=== PATIENT | female | born 1945 | race Caucasian/White ===

== ENCOUNTER 2022-08-01 05:52 | Day surgery (SDC) | payer MEDICARE ==
[2022-07-29 13:06] LABS: BASOPHILS % (AUTO) 0.2 % (0.0-5.0); EOSINOPHILS % (AUTO) 3.5 % (0.0-8.0); HEMATOCRIT 38.2 % (36-48); LYMPHOCYTES % (AUTO) 25.4 % (21.0-51.0); MEAN CORPUSCULAR HEMOGLOBIN 31.6 pg (27.0-33.0); MEAN CORPUSCULAR HGB CONC 32.7 g/dL (32.0-36.0); MEAN CORPUSCULAR VOLUME 96.7 fL (79-99); MONOCYTES % (AUTO) 7.8 % (3.0-13.0); NEUTROPHILS % (AUTO) 62.9 % (40.0-77.0); PLATELET COUNT (AUTO) 200 K/uL (130-400); RED BLOOD CELL COUNT(AUTO) 3.95 MIL/uL (4.00-5.50); WHITE BLOOD COUNT (AUTO) 6.3 K/uL (4.8-10.8)
[2022-07-29 13:14] LABS: CREATININE 0.8 mg/dL (0.5-1.5); POTASSIUM 4.4 mmol/L (3.5-5.1)
[2022-07-29 13:34] LABS: INR 0.93 (0.85-1.15)
[2022-07-29 13:35] LABS: PARTIAL THROMBOPLASTIN TIME 26.6 SEC (26.3-35.5)
[2022-07-29 14:32] VITALS: BP 178/76
[~2022-08-01] VITALS: Ht 160 cm; Wt 70.8 kg
[2022-08-01] VITALS (10 sets, daily range): BP systolic 130–191; BP diastolic 39–77
[~2022-08-01 05:52] MED LIST: ALBU18HF7 IH; CEFAZOLIN SODIUM 2 GM VIAL IVPB SCH; CHOL100046 PO; LISI20TA24 PO; MAGNESIUM PO; OMEG-148 PO; VITA1CAP85 PO
[2022-08-01] MEDS ORDERED: 0.9%NACL 1000ML 1,000 ML IV ONE (06:11)
[2022-08-01] MEDS ORDERED: CEFAZOLIN SODIUM 1 GM VIAL ONE (07:09)
[2022-08-01] MEDS ORDERED: MEPERIDINE-PF 25 MG/ML SYG ONE ×2 (07:10→07:54)
[2022-08-01] MEDS ORDERED: MIDAZOLAM HCL 1 MG/ML 2ML VIAL ONE ×2 (07:10→07:54)
[2022-08-01] MEDS ORDERED: BUPIVACAINE/PF 0.25% 10ML VIAL IJ ONE (07:10)
[2022-08-01] MEDS ORDERED: LIDOCAINE HCL 1% MDV 50ML VIAL ONE (07:10)
[2022-08-01] MEDS ORDERED: IOHEXOL-350 50ML VIAL IV ONE (08:01)
[2022-08-01] MEDS ORDERED: ACETAMINOPHEN WITH CODEINE 1 TAB TAB PO PRN (09:00)
[2022-08-01] MEDS ORDERED: ACETAMINOPHEN 500 MG TABLET PO PRN (09:00)
== END 2022-08-01 12:05 | disposition home or self-care (01) ==
LOC: DAH 05:52
PROVIDERS: ATTEND Internal Medicine Cardiovascular Disease
DX: I49.5 Sick sinus syndrome (principal); E78.5 Hyperlipidemia, unspecified; E11.9 Type 2 diabetes mellitus without complications; Z82.49 Family history of ischemic heart disease and other diseases of the circulatory system; Z82.3 Family history of stroke; Z79.899 Other long term (current) drug therapy; Z88.8 Allergy status to other drugs, medicaments and biological substances; Z79.01 Long term (current) use of anticoagulants
CPT/HCPCS: 80048; 85025; 85610; 85730; 36415; 93005; 33208; 71045; C1785; C1898 ×2; J0690; J7030; J2250 ×2; J3490 ×2; J2175 ×2; A4215; A6251; A4335; A4222; A4221; A4663; A4216; A6258; A4606; A4223 ×3; A4554; 99156; 99157; Q9967